=== PATIENT | female | born 1965 | race Caucasian/White ===

== ENCOUNTER 2018-07-04 11:34 | Inpatient (IN) | payer MEDICARE, OTHER ==
[2018-07-04 17:05] LABS: Hematocrit 40.6 % (37.0-47.0); Hemoglobin 13.3 gm/dL (12.5-16.0); Mean Cell Volume 93.1 fl (78-100); Mean Corpuscular Hemoglobin 30.5 pg (27-31); Mean Corpuscular Hgb Conc 32.8 g/dl (32-36); Mean Platelet Volume 9.5 fl (8-12.5); Neutrophil # 6.9 K/mm3 (1.3-6.0); Neutrophil % 69.1 % (42-75.0); Platelet Count 409 K/mm3 (150-450); Red Blood Count 4.36 M/mm3 (4.2-5.4); Red Cell Distribution Width 14.2 % (11.5-14.0); White Blood Count 9.9 K/mm3 (4.0-10.5)
[2018-07-04 17:17] LABS: Albumin * 3.1 gm/dl (3.4-5.0); Anion Gap 9.2 mmol/L (6.8-13.8); BUN/Creatinine Ratio 15.5 (9.0-21.6); Bilirubin, Total 0.3 mg/dL (0.0-1.1); Ca. Corrected For Albumin 9.2 mg/dL (8.4-10.2); Calcium * 8.8 mg/dL (7.9-10.9); Carbon Dioxide 31.3 mmol/L (24-32.6); Potassium 3.5 mmol/L (3.4-4.6); Total Protein 7.4 gm/dL (6.2-8.2)
[2018-07-04] MEDS ORDERED: ACETAMINOPHEN 325 MG TABLET PO PRN (17:27)
--- NOTE | 2018-07-04 17:27 | HP ---
Chief Complaint - Chief Complaint Date of Service: 07/04/18 Time of Service: 16:47 Chief Complaint: foot ulcer History of Present Illness: Patient with PMHx of lower extremity lymphedema presents with a left foot wound that has been present for several weeks. She goes to a wound clinic weekly in [place]. A few weeks ago, the marine electrician helper in [place] removed some tissue from that foot, but it is still not healing. She was seen in Dr. Pizarro's office today, and she had increased drainage from the wound. Stat MRI was done, which was positive for osteomyelitis, and she is being admitted for further treatment. She has never had this before. She reports having some pain in that foot. She denies fevers, appetite changes, or other symptoms. She denies a history of diabetes, and only takes lasix twice a day. Medical History (Last Updated 07/04/18 @ 16:02 by Hannah Roberts RN) Acquired lymphedema of leg Onset Date: ~2015 Surgical History: Surgical History (Last Updated 07/04/18 @ 16:03 by Hannah Roberts RN) No history of previous surgery Family History: Family History (Last Updated 07/04/18 @ 16:03 by Hannah Roberts RN) Mother Father Social History: Patient Lives/Resources Home Utilized Occupation unemployed Preferred Language German Do you have any christian or No cultural preference? Smoking Status Former smoker Have you smoked in the past 12 No months No Social History Section defined Review Of Systems (GEN) - Review of Systems Generalized/Overall Review: Absent: Fever Respiratory: Absent: Cough, Shortness of Breath Cardiac: Present: Edema. Absent: Chest Pain Abdominal: Absent: Diarrhea Genitourinary: Absent: Dysuria Musculoskeletal: Present: Other - foot wound and pain Allergies/Adverse Reactions: Allergies Allergy/AdvReac Type Severity Reaction Status Date / Time No Known Allergies Allergy Verified 07/04/18 15:59 Exam - Exam Vital Signs: Vital Signs - Last Taken Temp 36.5 C 07/04/18 16:04 Pulse 97 07/04/18 16:04 Resp 14 07/04/18 16:04 BP 109/58 07/04/18 16:04 Pulse Ox 95 07/04/18 16:04 Constitutional: Present: Alert, Cooperative, No distress, Looks Older than stated age ENT Exam: Present: hearing grossly normal, moist mucous membranes Respiratory: Present: lungs clear, normal breath sounds, no respiratory distress Cardiovascular/Chest: Present: regular rate, rhythm Abdomen: Present: Normal bowel sounds, soft - massive bilateral non-pitting edema of bilateral lower legs Skin Exam: Present: other - 3X3 cm diameter Stage 3 or 4 ulcer of left calcaneal region, with 2 cm depth. Scant foul-smelling discharge. Sensation intact, cap refill <3 sec in bilateral great toes Assessment/Plan - Assessment/Plan (1) Osteomyelitis Assessment: Will start vancomycin for gram +, and rocephin for gram - antibiotic coverage. Discussed with ortho, and she is not a surgical candidate with her lymphedema. CBC, CMP, blood cultures pending. Wound culture has been obtained. She does not seem to be in significant pain, and will attempt pain control with Tylenol. She is afebrile, and has no abnormal vital signs. Cover wound with sterile gauze, and wound consult placed. Lovenox for DVT prophylaxis. Will need terminal block assembler IV vancomycin. Problem: Acute Qualifiers: Osteomyelitis location: foot Laterality: left (2) Lymphedema Assessment: Continue home 20 mg lasix bid. Problem: Chronic
[2018-07-04] MEDS: ENOXAPARIN SODIUM 40 MG/0.4 ML SYRG SC SCH (18:33)
[2018-07-04] MEDS: VANCOMYCIN HCL 1 GM in DEXTROSE 5 % IN WATER 250 ML IV SCH ×2 (18:34)
[2018-07-04] MEDS: FUROSEMIDE 20 MG TABLET PO SCH (20:29)
[2018-07-05] MEDS: VANCOMYCIN HCL 1 GM in DEXTROSE 5 % IN WATER 250 ML IV SCH ×4 (05:06→17:39)
[2018-07-05] MEDS: ENOXAPARIN SODIUM 40 MG/0.4 ML SYRG SC SCH ×2 (05:07→16:30)
[2018-07-05] MEDS: FUROSEMIDE 20 MG TABLET PO SCH ×2 (08:27→20:20)
--- NOTE | 2018-07-05 08:45 | PN ---
Subjective - Date and Time Seen Date: 07/05/18 Time: 08:25 Subjective Narrative: Patient reports her foot feels a little better. She lives at home alone. She reports her lower leg swelling started about 6 months ago. Is eating, drinking, and ambulating to the restroom. Remains afebrile. Objective - Review of Systems Generalized/Overall Review: Denies: Fever Respiratory: Denies: Shortness of Breath Cardiac: Reports: Edema. Denies: Chest Pain Abdominal: Denies: Nausea, Vomiting, Diarrhea Genitourinary Symptoms: Denies: Burning Musculoskeletal Complaints: Reports: Other - left calcaneal wound, slightly painful - Vitals Vitals: Last Vital Signs Temp 36.5 C 07/05/18 05:29 Pulse 84 07/05/18 05:29 Resp 16 07/05/18 05:29 BP 103/56 07/05/18 05:29 Pulse Ox 97 07/05/18 05:29 - Abnormal Lab Findings Abnormal Lab Findings: Abnormal Lab Results 07/04/18 07/04/18 Range/Units 16:58 16:58 RDW 14.2 H (11.5-14.0) % Immature Gran # (Auto) 0.04 H (0.000-0.0310) K/mm3 Neutrophils # 6.9 H (1.3-6.0) K/mm3 Albumin 3.1 L (3.4-5.0) gm/dl - Exam Constitutional: Present: Alert, Cooperative, Obese Respiratory: Present: lungs clear, normal breath sounds Cardiovascular/Chest: Present: regular rate, rhythm Abdomen: Present: Normal bowel sounds, soft, nontender Extremity: Present: other - significant bilateral lower extremity nonpitting edema Skin Exam: Present: other - left foot wrapped in kerlex, with purulent seepage over the wound Neurologic: Present: other - ambulates with cane Eye contact: Present: cooperative Assessment/Plan - Problems/Diagnosis (1) Osteomyelitis Problem: Acute Qualifiers: Osteomyelitis location: foot Laterality: left Narrative: Continue vanc and rocephin. Order has been placed for PICC, as she will need prolonged IV antibiotics. Not a surgical candidate secondary to her significant lymphedema. Wound care has been consulted. Wound culture pending. She is afebrile, and has no other acute complaints. Will need to further assess her cognition to determine if she would be capable of administering antibiotics herself. May need placement. (2) Lymphedema Problem: Chronic Narrative: Will consult PT to see if there is treatment options available for her here. Continue home lasix.
--- NOTE | 2018-07-05 12:48 | CONS ---
[facility] - General Date of Service: 07/05/18 Narrative: Pt admitted yesterday as a direct admit at the recommendation of her PCP, Dr. Pizarro, after being found to have chronic ulceration to the left heel and celluitis about her left lower extremity. Pt states that she has been under the care of Dr. Gil for approximately 5-6 weeks for this ulceration. He has been applying "an ointment" to the ulceration and dressing it with a dry dressing. Relates that it began as a callus that she noticed started to drain. States that at her last visit she was told it was looking very good, however she began to develop some increasing pain in the area. She presented to her PCP yesterday, who recommended direct admit to the hospital for further eval and care. I was consulted for evaluation and treatment of the ulceration. Source: patient - History of Present Illness Timing/Duration: getting worse Allergies/Adverse Reactions: Allergies No Known Allergies Allergy (Verified 07/04/18 15:59) Home Medications: Home Medications Medication Instructions Recorded Last Taken Furosemide [Lasix] 20 mg PO BID 07/04/18 Unknown Medications - Medications Current Medications: Current Medications Enoxaparin Sodium (Lovenox) 40 mg SC Q12H SANTI Stop: 08/03/18 17:31 Last Admin: 07/05/18 05:07 Dose: 40 mg Furosemide (Lasix) 20 mg PO BID SANTI Stop: 08/03/18 21:01 Last Admin: 07/05/18 08:27 Dose: 20 mg Vancomycin HCl 1 gm/ Dextrose/ (Water) 250 mls @ 140 mls/hr IV Q12H SANTI Stop: 08/03/18 18:01 Last Infusion: 07/05/18 07:12 Dose: Infused Ceftriaxone Sodium 1,000 mg/ (Dextrose/Water) 100 mls @ 200 mls/hr IV Q24H SANTI; Protocol Stop: 08/03/18 17:01 Last Infusion: 07/04/18 17:59 Dose: Infused Review of Systems - Review of Systems Generalized/Overall Review: Absent: Chills, Fever, Malaise Respiratory: Absent: Shortness of Breath Cardiac: Present: Edema Abdominal: Absent: Nausea, Vomiting, Diarrhea Skin: Present: Other - ulceration left heel Physical Examination - Exam Vital Signs: Vital Signs - Last Taken Temp 36.0 C 07/05/18 09:00 Pulse 74 07/05/18 09:00 Resp 20 07/05/18 09:00 BP 103/53 07/05/18 09:00 Pulse Ox 98 07/05/18 09:00 O2 Oxygen Delivery Method Room Air Constitutional: Present: Alert, Oriented x3, Cooperative, No distress Peripheral Pulses: dorsalis-pedis (L): 2+ - unable to palpate PT pulse due to extensive lymphedema Extremity: Present: other - significant b/l LE lymphedema Skin Exam: Present: other - Ulceration to plantar left heel measuring 3 x 2.9 x 1.8 cm. No tunneling or undermining. Loss of tissue to full thickness with exposure of subcutaneous fat layer. Base mostly yellow, fibrotic-necrotic tissue with minimal granulation tissue intermixed. Surrounding tissue with callus and maceration with erythema that extends from the ulceration into the lower leg. Area is tender to touch. There is a moderate amount of serosanguinous drainage with a mild odor present. There is no exposed tendon or bone at this time. - Results and Findings: Lab/Microbiology results last 24 hrs: Abnormal/Pending Laboratory Last 24 HRS 07/04/18 07/04/18 16:58 16:58 RDW 14.2 H Immature Gran # (Auto) 0.04 H Neutrophils # 6.9 H Albumin 3.1 L Culture 07/04/18 16:30 Wound Culture - Preliminary Heel - Left Ruling Out Pathogen - Assessments/Findings (1) Foot ulcer with necrosis of bone Diagnosis(s): Verbal consent is obtained from patient for debridement of ulceration today. Due to sensitivity, the ulceration is anesthetized with 1% Lidocaine, 10 mL, injected around the periphery of the ulceration. Ulceration is debrided to subcutaneous tissue with #15 blade, excising all hyperkeratotic tissue revealing healthy, bleeding subcutaneous wound margins. Surface also debrided with #15 blade removing all devitalized tissue down to healthy, bleeding subcutaneous wound bed. Hemostasis with compression. Pt tolerated well. Dressed with a moist-dry dressing. This will be changed daily. Problem: Acute Qualifiers: Laterality: left Qualified Code(s): L97.524 - Non-pressure chronic ulcer of other part of left foot with necrosis of bone (2) Osteomyelitis Diagnosis(s): Verbal consent obtained from patient for bone culture of the left heel. Area l ateral to the ulcerated site is prepped with betadine, a small stab incision is made. A Earnest needle with trochar is inserted and directed down to bone. Trochar is removed and needle advanced into the calcaneus, obtaining a 1 cm sample of bone. This will be sent to lab for culture. Pressure is applied for hemostasis. A dry gauze compressive dressing is applied. Continue current IV ABX pending both swab and bone culture results. Problem: Acute Qualifiers: Osteomyelitis location: foot Laterality: left
--- NOTE | 2018-07-05 17:51 | ANES ---
Anesthesia Procedure Note Procedure Note: ANESTHESIA PROCEDURE NOTE Date of Procedure: 07/05/2018 Time of procedure: 1700. Performed by: SARA Ray CRNA, MSN Preprocedure diagnosis: Osteomyelitis. Post procedure diagnosis: Same. Procedure: PICC line placement. Indications: long-term antibiotic therapy requirements. Findings: See below. Details of the procedure: After surveying the patient's venous access with ultrasound and no viable vein obvious, a right antecubital superficial pain was decided upon. The patient was prepped with chlorhexidine and 0.25 mL of 1% lidocaine solution was injected at the intended PICC site. The catheter was trimmed to 46 centimeters and flushed with sterile saline solution. After full prep and drape was performed, creating a sterile field the ultrasound was used to reidentify the intended venous access. A #22-gauge IV was inserted under ultrasound guidance, a guidewire was threaded through the 22-gauge catheter and then the catheter was removed. Small maryanne was made in the skin at the insertion site and the catheter was threaded to its hub. Aspiration of reports was easily achieved and they were again flushed with saline solution. The catheter was dressed with sterile dressing available in the And a chest x-ray for placement is ordered. EBL: Minimal. Fluids: N/A. Specimen: N/A. Please see Radiology/Ultrasound for retained images of procedure. Post procedure condition: The patient tolerated the procedure well. No complications were noted. Thank you for this consultation. Neo Cochran CRNA, MSN
[2018-07-06] MEDS: VANCOMYCIN HCL 1 GM in DEXTROSE 5 % IN WATER 250 ML IV SCH ×4 (05:36→18:04)
[2018-07-06] MEDS: ENOXAPARIN SODIUM 40 MG/0.4 ML SYRG SC SCH ×2 (05:39→17:18)
[2018-07-06] MEDS ORDERED: [UNRECOGNIZED DRUG - OTHER] IV PRN (07:57)
--- NOTE | 2018-07-06 08:41 | PN ---
Subjective - Date and Time Seen Date: 07/06/18 Time: 08:41 Subjective Narrative: Patient had PICC placed yesterday afternoon, and also had bone culture obtained. She feels like her foot is better after the bone culture. Is eating and drinking, and able to ambulate to the bathroom with her cane. Discussed discharge plan, and she would not be able to physically reach her foot to change her dressings, and lives alone. She agreed to placement after discharge. Objective - Review of Systems Generalized/Overall Review: Denies: Fever Respiratory: Denies: Cough, Shortness of Breath Cardiac: Reports: Edema. Denies: Chest Pain Abdominal: Denies: Nausea, Vomiting, Diarrhea Genitourinary Symptoms: Denies: Burning Musculoskeletal Complaints: Reports: Other - left foot ulcer with mild pain - Vitals Vitals: Last Vital Signs Temp 36.8 C 07/06/18 07:37 Pulse 62 07/06/18 07:37 Resp 20 07/06/18 07:37 BP 93/53 07/06/18 07:37 Pulse Ox 93 07/06/18 07:37 - Exam Constitutional: Present: Alert, Cooperative, Obese Respiratory: Present: lungs clear, normal breath sounds Cardiovascular/Chest: Present: regular rate, rhythm Abdomen: Present: soft, nontender, obese Extremity: Present: lower extremity edema - massive bilateral, no change from yesterday. Feet warm. Skin Exam: Present: other - 3X3 cm ulcer of left calcaneal region with packing in place, wrapped in kerlex Assessment/Plan - Problems/Diagnosis (1) Osteomyelitis Problem: Acute Qualifiers: Osteomyelitis location: foot Laterality: left Narrative: Currently on day #3 of vancomycin and Rocephin. Not a surgical candidate due to her lymphedema. Bone culture obtained yesterday, and will adjust antibiotics if needed. She is afebrile. Will need prolonged course of abx, and PICC placed yesterday. She agreed to placement after discharge. I am concerned if she were to go home, she would not be able to properly care for her wound and lymphedema, and get septic. If a boot could be fitted that would accommodate the size of her leg, that may protect her wound. Anticipate discharge after bone culture results. (2) Lymphedema Problem: Chronic Narrative: Physical therapy worked with her yesterday, and appreciate their assistance. Her lasix was held this morning for somewhat low blood pressure, but will continue bid if BP allows.
[2018-07-06] MEDS: FUROSEMIDE 20 MG TABLET PO SCH (08:42)
[2018-07-06] MEDS ORDERED: HEPARIN SOD.,PORCINE 100 UNITS/ML ONE (09:03)
[2018-07-06] MEDS ORDERED: HEPARIN SOD.,PORCINE 100 UNITS/ML IV PRN (09:30)
[2018-07-06] MEDS: HEPARIN SOD.,PORCINE 100 UNITS/ML IV PRN ×2 (09:40→18:00)
--- NOTE | 2018-07-06 13:10 | PN ---
Subjective - Date and Time Seen Date: 07/06/18 Time: 13:02 Subjective Narrative: Pt evalutated at bedside. She transfers herself from chair to bed for exam. States she is feeling good today. Relates no pain to her heel following debridement and bone culture yesterday. Did have PICC line inserted yesterday. Plans for placement in either [place] or [facility] on d/c for IV ABX therapy. Awaiting final ABX choice before placement. Objective - Review of Systems Generalized/Overall Review: Denies: Weakness, Chills, Fever Respiratory: Denies: Cough Cardiac: Reports: Edema Abdominal: Denies: Nausea, Vomiting, Diarrhea Skin: Reports: Other - ulceration left heel - Vitals Vitals: Last Vital Signs Temp 36.9 C 07/06/18 10:09 Pulse 62 07/06/18 10:09 Resp 20 07/06/18 07:37 BP 95/55 07/06/18 10:09 Pulse Ox 93 07/06/18 10:09 - Exam Constitutional: Present: Alert, Oriented x3, Cooperative Extremity: Present: other - significant lymphedema b/l LE Skin Exam: Present: other - Ulceration to plantar left heel that has reduced significantly in size measuring 2.2 x 1.6 x 1.2 cm. No tunneling or undermining. Loss of tissue to full thickness with exposure of subcutaneous fat layer. Base mostly red, granular with some yellow, fibrotic tissue intermixed. Surrounding tissue with mild erythema that extends from the ulceration into the lower leg - improved. Area is no longer tender to touch. There is a moderate amount of serosanguinous drainage with a mild odor present. There is no exposed tendon or bone at this time. Appearance: Present: appropriate appearance Eye contact: Present: cooperative Assessment/Plan - Problems/Diagnosis (1) Foot ulcer with necrosis of bone Problem: Acute Qualifiers: Laterality: left Qualified Code(s): L97.524 - Non-pressure chronic ulcer of other part of left foot with necrosis of bone Narrative: Ulceration with significant improvement. New dressing applied - Aquacel Ag, dry gauze, and sean wrap. This is to be changed daily. Still considering wound VAC placement, however would like to see what final culture results show prior to placement. (2) Osteomyelitis Problem: Acute Qualifiers: Osteomyelitis location: foot Laterality: left Narrative: Continue current ABX. Await final culture results, adjust as needed. Continue daily dressings.
[2018-07-06] MEDS ORDERED: NORMAL SALINE 500 ML IV ONE (16:41)
[2018-07-06] MEDS ORDERED: VANCOMYCIN HCL LEVEL XX ONE (17:00)
[2018-07-07 05:35] LABS: Hematocrit 36.2 % (37.0-47.0); Hemoglobin 11.6 gm/dL (12.5-16.0); Mean Cell Volume 92.8 fl (78-100); Mean Corpuscular Hemoglobin 29.7 pg (27-31); Mean Platelet Volume 9.4 fl (8-12.5); Neutrophil # 4.8 K/mm3 (1.3-6.0); Neutrophil % 63.5 % (42-75.0); Platelet Count 305 K/mm3 (150-450); Red Cell Distribution Width 14.2 % (11.5-14.0); White Blood Count 7.6 K/mm3 (4.0-10.5)
[2018-07-07 05:41] LABS: Anion Gap 11.6 mmol/L (6.8-13.8); BUN/Creatinine Ratio 15.1 (9.0-21.6); Calcium * 8.7 mg/dL (7.9-10.9); Carbon Dioxide 27.4 mmol/L (24-32.6); Estimated Creat Clear 65.7
[2018-07-07] MEDS: VANCOMYCIN HCL 1 GM in DEXTROSE 5 % IN WATER 250 ML IV SCH ×2 (06:20)
[2018-07-07] MEDS: ENOXAPARIN SODIUM 40 MG/0.4 ML SYRG SC SCH ×2 (06:25→16:56)
--- NOTE | 2018-07-07 08:13 | PN ---
Subjective - Date and Time Seen Date: 07/07/18 Time: 07:41 Subjective Narrative: Patient continues to deny acute complaints. No problems with CP, SOB, N/V/D. Improvement in her heel ulcer per Dr. Townsend's note yesterday. She did have some slight low BP last evening, improved with fluids. Objective - Review of Systems Generalized/Overall Review: Denies: Fever Respiratory: Denies: Cough, Shortness of Breath Cardiac: Reports: Edema. Denies: Chest Pain Abdominal: Denies: Nausea, Vomiting, Diarrhea Genitourinary Symptoms: Denies: Urgency Skin: Reports: Other - Left heel ulcer - Vitals Vitals: Last Vital Signs Temp 36.9 C 07/07/18 06:57 Pulse 60 07/07/18 06:57 Resp 20 07/07/18 06:57 BP 107/59 07/07/18 06:57 Pulse Ox 94 07/07/18 06:57 - Abnormal Lab Findings Abnormal Lab Findings: Abnormal Lab Results 07/07/18 Range/Units 05:20 RBC 3.90 L (4.2-5.4) M/mm3 Hgb 11.6 L (12.5-16.0) gm/dL Hct 36.2 L (37.0-47.0) % RDW 14.2 H (11.5-14.0) % Eosinophils % 3.2 H (0.0-3.0) % - Exam Constitutional: Present: Alert, No distress, Morbidly obese Respiratory: Present: normal breath sounds, no respiratory distress Cardiovascular/Chest: Present: regular rate, rhythm Abdomen: Present: Normal bowel sounds, soft, nontender, obese Extremity: Present: lower extremity edema - Massive nonpitting edema of bilateral legs, slight improvement from yesterday, other - left foot wrapped in kerlex, not removed this morning Eye contact: Present: cooperative Assessment/Plan - Problems/Diagnosis (1) Osteomyelitis Problem: Acute Qualifiers: Osteomyelitis location: foot Laterality: left Narrative: Today is day #4 of vanc and Rocephin. PICC placed 07/05. Wound culture showed staph, beta hemolytic, and alpha hemolytic strep, ID and ALFA still pending. Bone culture obtained 07.05, no growth as of yet. MRI positive for osteomyelitis on day of admission. If no growth on bone culture, and her wound is responding to vanc and Rocephin, will discharge with those abx. May need the vanc for a 6 week course. She is afebrile, WBC not elevated. Given her significant lymphedema, recovery may be difficult. She has agreed to placement. I do not believe she is capable of caring for the wound on her own. (2) Lymphedema Problem: Chronic Narrative: Lasix held for low blood pressures yesterday. Her legs seem to be improving, possibly from elevation. The extent of her lymphedema is extensive, and likely has been present for longer than 6 months like the patient suggests. PT has been consulted.
[2018-07-07] MEDS: HEPARIN SOD.,PORCINE 100 UNITS/ML IV PRN ×2 (08:32→19:55)
[2018-07-07] MEDS: VANCOMYCIN HCL 1.25 GM in DEXTROSE 5 % IN WATER 250 ML IV SCH ×2 (18:03)
[2018-07-08] MEDS: ENOXAPARIN SODIUM 40 MG/0.4 ML SYRG SC SCH (04:40)
[2018-07-08] MEDS: VANCOMYCIN HCL 1.25 GM in DEXTROSE 5 % IN WATER 250 ML IV SCH ×2 (05:05)
[2018-07-08] MEDS: HEPARIN SOD.,PORCINE 100 UNITS/ML IV PRN (07:29)
--- NOTE | 2018-07-08 08:50 | PN ---
Subjective - Date and Time Seen Date: 07/08/18 Time: 08:50 Subjective Narrative: Patient continues to do well, but her bone culture has not resulted yet. She feels like her foot ulcer is improving. She afebrile, eating, drinking, ambulating to the bathroom, and stooling. No new concerns. Objective - Review of Systems Generalized/Overall Review: Denies: Fever Respiratory: Denies: Cough, Shortness of Breath Cardiac: Reports: Edema. Denies: Chest Pain Abdominal: Denies: Vomiting Genitourinary Symptoms: Denies: Dysuria Skin: Reports: Other - left foot ulcer - Vitals Vitals: Last Vital Signs Temp 36.3 C 07/08/18 07:05 Pulse 84 07/08/18 07:05 Resp 16 07/08/18 07:05 BP 97/52 07/08/18 07:05 Pulse Ox 95 07/08/18 07:05 - Exam Constitutional: Present: Alert, Cooperative, Obese Respiratory: Present: lungs clear, normal breath sounds Cardiovascular/Chest: Present: regular rate, rhythm Abdomen: Present: Normal bowel sounds, soft, nontender Extremity: Present: lower extremity edema - Significant nonpitting bilateral lower extremity edema, improved from admission Skin Exam: Present: other - left foot ulcer improving. Decreased depth from admission. No active drainage. Eye contact: Present: avoids eye contact Assessment/Plan - Problems/Diagnosis (1) Osteomyelitis Problem: Acute Qualifiers: Osteomyelitis location: foot Laterality: left Narrative: Today is day #5 of vanc and Rocephin. PICC placed 07/05. Wound culture showed staph, beta hemolytic, and alpha hemolytic strep, pansensitive. Bone culture from 07/05 is being replated. MRI positive for osteomyelitis on day of admission. May need the vanc for a 6 week course. She is afebrile, WBC not elevated. She has significant lymphedema, which will impede her recovery, but her wound has improved significantly since admission. Her weight has decreased by 12 pounds, and she has not been getting increased lasix. Her weight decrease is likely secondary to her keeping her feet up daily more than she does at home. She has agreed to placement, and has been accepted pending final antibiotic decision. I do not believe she is capable of caring for the wound on her own. (2) Lymphedema Problem: Chronic Narrative: Improved. Her legs aren't as swollen, likely due to her keeping her feet up. She has not been given extra lasix. Weight has decreased by 12 pounds. Will hold her lasix on discharge, and reassess its need at follow up visit with PCP.
--- NOTE | 2018-07-08 10:02 | DS ---
(1) Osteomyelitis Problem: Acute Qualifiers: Osteomyelitis location: foot Laterality: left (2) Lymphedema Problem: Chronic Description of Stay: Patient with significant lymphedema had been under the care of a honing machine operator semiautomatic for a left foot wound for several weeks. She saw her PCP on 07/04, and the wound had increased drainage and an odor. MRI positive for osteomyelitis, and she was admitted. Vanc and Rocephin were started 07/04, and PICC placed on 07/05. Wound culture was positive for staph, beta hemolytic, and alpha hemolytic strep, pansensitive. Bone culture from 07/05 is being replated and should result Monda y Jul 11. She was afebrile, WBC not elevated throughout admission. With her lymphedema, expect difficult recovery, but her wound improved significantly during admission. Her weight decreased by 12 pounds, and she has not been getting increased lasix from baseline. Lasix was held for blood pressures in the 90's/50's, asymptomatic. Her weight decrease is likely secondary to her keeping her feet up daily more than she does at home. She has agreed to placement, and has been accepted pending final antibiotic decision. I do not believe she is capable of caring for the wound on her own. Will send her with 6 weeks vancomycin, and 2 additional weeks of po clindamycin. Given her significant recovery in 4 days, her wound may be healed in 4 weeks. It may be helpful at that time to repeat MRI, and if negative, discontinue vancomycin. She is at risk for repeated ulcers in the future. Procedures Performed: see notes below - bone culture, wound debridement Results and Findings: Pending Mircobiology Results 07/05/18 12:30 Foot - Left Miscellaneous Culture - Preliminary Ruling Out Anaerobe 07/04/18 21:00 Blood Blood Culture - Preliminary NO GROWTH AFTER 48 HOURS 07/04/18 21:02 Blood Blood Culture - Preliminary NO GROWTH AFTER 48 HOURS Lab Pending Results 07/04/18 16:58: WBC 9.9, RBC 4.36, Hgb 13.3, Hct 40.6, MCV 93.1, MCH 30.5, MCHC 32.8, RDW 14.2 H, Plt Count 409, MPV 9.5, Immature Gran % (Auto) 0.40, Immature Gran # (Auto) 0.04 H, Neutrophils % 69.1, Lymphocytes % 20.9, Monocytes % 7.7, Eosinophils % 1.3, Basophils % 0.6, Nucleated RBC % 0.0, Neutrophils # 6.9 H, Lymphocytes # 2.07, Monocytes # 0.8, Eosinophils # 0.1, Absolute Basophils 0.1 07/04/18 16:58: Sodium 138, Plasma Sodium 138, Potassium 3.5, Chloride 101, Carbon Dioxide 31.3, Anion Gap 9.2, BUN 13, Creatinine 0.84, Est GFR (Non-Af Amer) 75, BUN/Creatinine Ratio 15.5, Random Glucose 109, Calcium 8.8, Calcium Adj for Albumin 9.2, Total Bilirubin 0.3, AST 22, ALT 42, Alkaline Phosphatase 99, Total Protein 7.4, Albumin 3.1 L 07/06/18 17:34: Vancomycin Trough 11.2 07/07/18 05:20: WBC 7.6 D, RBC 3.90 L, Hgb 11.6 L, Hct 36.2 L, MCV 92.8, MCH 29.7, MCHC 32.0, RDW 14.2 H, Plt Count 305, MPV 9.4, Immature Gran % (Auto) 0.30, Immature Gran # (Auto) 0.02, Neutrophils % 63.5, Lymphocytes % 24.4, Monocytes % 8.2, Eosinophils % 3.2 H, Basophils % 0.4, Nucleated RBC % 0.0, Neutrophils # 4.8, Lymphocytes # 1.85, Monocytes # 0.6, Eosinophils # 0.2, Absolute Basophils 0.0 07/07/18 05:20: Sodium 139, Plasma Sodium 139, Potassium 4.0, Chloride 104, Carbon Dioxide 27.4, Anion Gap 11.6, BUN 11, Creatinine 0.73, Est GFR (Non-Af Amer) 88, BUN/Creatinine Ratio 15.1, Random Glucose 100, Calcium 8.7 Discharge Location: [facility] Disposition: SNF Condition: Good Face to Face Encounter completed per CMS Guidelines: No Level of Care: SNF Discharge Activity: Activity as tolerated Discharge Diet: General/regular food Fpc Therapy: Physicial Therapy, Occupation Therapy Referrals: Ashley Pizarro, [Primary Care Provider] - Additional Patient Instructions (free text): -Please make TCM appointment unless senior care discharge. Thank you! Era @ [phone]. Prescriptions (Any new or edited meds): RX: Clindamycin HCl [Cleocin HCl] 300 mg PO Q6H #56 cap RX: Vancomycin HCl [Vancomycin] 1.25 gm IV Q12H 42 Days #105 gm Complete Home Medications List: Complete Home Medication List: RX: Acetaminophen [Tylenol] 325 mg PO Q6H PRN tablet 07/08/18 RX: Clindamycin HCl [Cleocin HCl] 300 mg PO Q6H #56 cap 07/08/18 RX: Vancomycin HCl [Vancomycin] 1.25 gm IV Q12H 42 Days #105 gm 07/08/18
--- NOTE | 2018-07-08 14:00 | PN ---
Subjective - Date and Time Seen Date: 07/08/18 Time: 11:30 Subjective Narrative: Pt evalutated at bedside. States she is feeling great today, and is ready for transfer to nursing facility. Plan for transfer today to [facility] in [place] for IV ABX therapy as well as some PT. Final bone cultures remain pending at this time, however swab cultures have been resulted. Objective - Review of Systems Generalized/Overall Review: Denies: Weakness, Chills, Fever, Malaise Cardiac: Reports: Edema Abdominal: Denies: Nausea, Vomiting, Diarrhea Skin: Reports: Other - ulceration left heel - Vitals Vitals: Last Vital Signs Temp 37.5 C 07/08/18 10:10 Pulse 81 07/08/18 10:10 Resp 16 07/08/18 10:10 BP 93/54 07/08/18 10:10 Pulse Ox 95 07/08/18 10:10 - Exam Constitutional: Present: Alert, Oriented x3, Cooperative Extremity: Present: lower extremity edema - severe lymphedema Skin Exam: Present: other - Ulceration to plantar left heel that has reduced significantly in size measuring 1.9 x 1.2 x 1.2 cm. No tunneling or undermining. Loss of tissue to full thickness with exposure of subcutaneous fat layer. Base mostly red, granular with some yellow, fibrotic tissue intermixed. Surrounding tissue pink, intact. Erythema appears to be resolved at this time. Area is no longer tender to touch. There is a moderate amount of serosanguinous drainage with no malodor present. There is no exposed tendon or bone at this time. 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 Will continue with current dressings. New dressing of Aquacel Ag, dry gauze, and sean applied. To be changed daily. Will plan follow up in 3 weeks. (2) Osteomyelitis Problem: Acute Qualifiers: Osteomyelitis location: foot Laterality: left Narrative: Transfer to [facility] today for continued IV ABX therapy. Await final bone culture results.
[2018-07-08 14:18] VITALS: BP 98/65
== END 2018-07-08 14:15 | DRG 464 ==
LOC: RAD 11:34 → MS 15:39
PROVIDERS: ADMIT Family Medicine; ATTEND Family Medicine
DX: I95.9 Hypotension, unspecified; Z87.891 Personal history of nicotine dependence; B95.7 Other staphylococcus as the cause of diseases classified elsewhere; M86.9 Osteomyelitis, unspecified; L97.424 Non-pressure chronic ulcer of left heel and midfoot with necrosis of bone; B95.4 Other streptococcus as the cause of diseases classified elsewhere; I89.0 Lymphedema, not elsewhere classified
CPT/HCPCS: 36415; 71010; 71045; 73630; 73720; 80048; 80053; 80202; 85025; 87040; 87070; 87077; 87081; 87186; 97161